=== PATIENT | female | born 1940 | race Caucasian/White ===

== ENCOUNTER → 2016-10-11 | Outpatient (CLI) | payer MEDICARE, BC ==
[~2016-10-11] MED LIST: ASPIRIN E.C. 8181 MG PO; ATENOLOL; DILAUDID 2MG TAB2 MG PO; MULTIPLE VITAMI1 CAP PO; PAXIL PO; PAXIL40 MG PO; TENORMIN 5050 MG/TAB PO; ULTRAM 50MG TAB50 MG PO; VITAMIN E 400 U4001 PO; ZOFRAN8 MG PO
== END ==
LOC: COL.RAD 10:38
PROVIDERS: Family Medicine
DX: R55 Syncope and collapse (principal); R25.8 Other abnormal involuntary movements

== ENCOUNTER 2017-01-16 02:06 | Emergency (ER) | payer MEDICARE, BC ==
[~2017-01-16] VITALS: Ht 152.4 cm; Wt 82.7 kg
[~2017-01-16 02:06] MED LIST changes: -DILAUDID 2MG TAB2 MG PO; -MULTIPLE VITAMI1 CAP PO; -PAXIL40 MG PO; -TENORMIN 5050 MG/TAB PO; -ULTRAM 50MG TAB50 MG PO; -VITAMIN E 400 U4001 PO; -ZOFRAN8 MG PO
[2017-01-16 02:16] VITALS: TEMP 97.6
[2017-01-16] MEDS ORDERED: ULTRAM 50MG TAB50 MG PO (02:28)
[2017-01-16] MEDS ORDERED: ZOFRAN8 MG PO (02:28)
[2017-01-16 02:32] LABS: BASO # 0.1 (0.0-0.2); BASO % 0.6 % (0.0-2.0); EOS # 0.2 (0.0-0.7); EOS % 1.6 % (0-4.0); GRAN # 11.6 (1.4-6.5); GRAN % 86.6 % (42.2-75.2); HEMATOCRIT 44.5 % (37.0-47.0); HEMOGLOBIN 14.8 g/dl (12.5-16.0); LYMPH # 0.7 (1.2-3.4); LYMPH % 5.1 % (20.0-51.0); MEAN CELL VOLUME 95 fl (80.0-100.0); MEAN CORPUSCULAR HEMOGLOBIN 32 pg (27.0-31.0); MEAN CORPUSCULAR HGB CONC 33 g/dl (33.0-37.0); MEAN PLATELET VOLUME 10.1 fl (7.4-10.4); MONO # 0.8 (0.1-0.6); MONO % 5.7 % (1.7-9.3); PLATELET COUNT 147 K/mm3 (130-400); REDCELL DISTRIBUTION WIDTH-CV 14.1 % (11.5-14.5); WHITE BLOOD COUNT 13.4 K/mm3 (4.8-10.8)
[2017-01-16 02:42] LABS: ADJUSTED CALCIUM 8.9 mg/dL (8.4-10.2); ALANINE AMINOTRANSFERASE 51 U/L (9-52); ALBUMIN 4.1 gm/dL (3.5-5.0); ALKALINE PHOSPHATASE 173 U/L (50-136); ANION GAP 13 mmol/L (7-16); BILIRUBIN,TOTAL 1.6 mg/dL (0.0-1.0); BLOOD UREA NITROGEN 17 mg/dL (7-17); CARBON DIOXIDE 29 mmol/L (22-30); CHLORIDE 99 mmol/L (98-107); CREATININE, serum 0.78 mg/dL (0.52-1.25); GLUCOSE 145 mg/dL (74-106); LIPASE 210 U/L (23-300); SODIUM 140 mmol/L (137-145); TOTAL PROTEIN 8.2 gm/dL (6.4-8.2)
[2017-01-16] MEDS ORDERED: PAXIL40 MG PO (02:52)
[2017-01-16] MEDS ORDERED: TENORMIN 5050 MG/TAB PO (02:54)
[2017-01-16] MEDS ORDERED: VITAMIN E 400 U4001 PO (02:56)
[2017-01-16] MEDS ORDERED: MULTIPLE VITAMI1 CAP PO (02:56)
[2017-01-16 03:06] LABS: TROPONIN-I < 0.012 ng/mL (0.000-0.034)
[2017-01-16] MEDS ORDERED: DILAUDID 2MG TAB2 MG PO (04:10)
[2017-01-16 04:20] VITALS: BP 125/64; PULSE 90
== END 2017-01-16 04:15 | disposition home or self-care (01) ==
LOC: COL.ER 02:06
PROVIDERS: Emergency Medicine
DX: E86.9 Volume depletion, unspecified (principal); R10.13 Epigastric pain; R11.2 Nausea with vomiting, unspecified; R19.7 Diarrhea, unspecified; I10 Essential (primary) hypertension; F32.9 Major depressive disorder, single episode, unspecified; G20 Parkinson's disease; R00.0 Tachycardia, unspecified
CPT/HCPCS: C9113; J1170; J2405; J7030

== ENCOUNTER → 2017-06-21 | Outpatient (CLI) | payer MEDICARE, BC ==
[~2017-06-21] MED LIST changes: +DILAUDID 2MG TAB2 MG PO; +MULTIPLE VITAMI1 CAP PO; +PAXIL40 MG PO; +TENORMIN 5050 MG/TAB PO; +ULTRAM 50MG TAB50 MG PO; +VITAMIN E 400 U4001 PO; +ZOFRAN8 MG PO
== END ==
LOC: COL.RAD 08:31
DX: K76.9 Liver disease, unspecified (principal); K44.9 Diaphragmatic hernia without obstruction or gangrene; R19.7 Diarrhea, unspecified
CPT/HCPCS: Q9967

== ENCOUNTER → 2017-06-23 | Outpatient (CLI) | payer MEDICARE, BC | LOC: COL.RAD 08:15 | DX: R18.8 Other ascites (principal); N83.8 Other noninflammatory disorders of ovary, fallopian tube and broad ligament ==

== ENCOUNTER → 2017-06-30 | Outpatient (CLI) | payer MEDICARE, BC ==
[~2017-06-30] VITALS: Ht 152.4 cm; Wt 85.3 kg
[2017-06-30 11:47] VITALS: BP 159/88; PULSE 66
[2017-06-30 12:55] VITALS: BP 158/88; PULSE 60
== END ==
LOC: COL.RAD 11:08
DX: R18.8 Other ascites (principal)

== ENCOUNTER → 2017-07-01 | Outpatient (CLI) | payer MEDICARE, BC | LOC: COL.RAD 08:15 | DX: K74.60 Unspecified cirrhosis of liver (principal); K76.0 Fatty (change of) liver, not elsewhere classified; J90 Pleural effusion, not elsewhere classified | CPT/HCPCS: A9585 ==

== ENCOUNTER → 2017-08-22 | Outpatient (CLI) | payer MEDICARE, BC ==
[2017-08-22 13:49] LABS: HEMATOCRIT 40.2 % (37.0-47.0); HEMOGLOBIN 13.2 g/dl (12.5-16.0); MEAN CELL VOLUME 98 fl (80.0-100.0); MEAN CORPUSCULAR HEMOGLOBIN 32 pg (27.0-31.0); MEAN CORPUSCULAR HGB CONC 33 g/dl (33.0-37.0); MEAN PLATELET VOLUME 10.2 fl (7.4-10.4); PLATELET COUNT 159 K/mm3 (130-400); RED BLOOD COUNT 4.12 M/mm3 (4.10-5.30); WHITE BLOOD COUNT 7.6 K/mm3 (4.8-10.8)
[2017-08-22 14:15] LABS: ERYTHROCYTE SEDIMENTATION RATE 13 mm/hr (0-30)
== END ==
LOC: COL.LAB 13:18
PROVIDERS: Orthopaedic Surgery
DX: Z47.1 Aftercare following joint replacement surgery (principal); M25.561 Pain in right knee; Z96.651 Presence of right artificial knee joint

== ENCOUNTER → 2017-09-27 | Outpatient (CLI) | payer MEDICARE, BC ==
[~2017-09-27] VITALS: Ht 152.4 cm; Wt 76.9 kg
[~2017-09-27] MED LIST changes: +ALDACTONE 25MG25 M1 PO
[2017-09-27 12:27] VITALS: BP 130/86; PULSE 76
[2017-09-27 13:34] VITALS: BP 157/94; PULSE 81
[2017-09-27 14:00] LABS: PERITONEAL -POLYMORPHONUCLEAR 6.6 % (0-25); PERITONEAL FLUID RBC 1000 /mm3 (0-0)
== END ==
LOC: COL.RAD 11:57
PROVIDERS: Family Medicine
DX: K74.60 Unspecified cirrhosis of liver (principal)

== ENCOUNTER → 2017-11-01 | Outpatient (CLI) | payer MEDICARE, BC ==
[~2017-11-01] VITALS: Ht 152.4 cm; Wt 79.6 kg
[~2017-11-01] MED LIST changes: +CBD PO
[2017-11-01 11:07] VITALS: BP 133/83; PULSE 82
[2017-11-01 12:50] VITALS: BP 136/78; PULSE 69
[2017-11-01 13:10] LABS: PERITONEAL -POLYMORPHONUCLEAR 3.7 % (0-25); PERITONEAL FLUID RBC 1000 /mm3 (0-0)
== END ==
LOC: COL.RAD 10:46
PROVIDERS: Family Medicine
DX: R18.8 Other ascites (principal); R11.0 Nausea

== ENCOUNTER 2018-02-26 14:15 | Inpatient (IN) | payer MEDICARE, BC ==
[~2018-02-26] VITALS: Ht 149.9 cm; Wt 92.7 kg
[2018-02-26] VITALS (193 sets, daily range): BP systolic 76–94; BP diastolic 49–58; PULSE 72–73; TEMP 97.9–98.7; O2SAT 69–100
[2018-02-26 15:17] LABS: HEMATOCRIT 38.4 % (37.0-47.0); HEMOGLOBIN 12.9 g/dl (12.5-16.0); MEAN CELL VOLUME 96 fl (80.0-100.0); MEAN CORPUSCULAR HEMOGLOBIN 32 pg (27.0-31.0); MEAN CORPUSCULAR HGB CONC 34 g/dl (33.0-37.0); MEAN PLATELET VOLUME 10.9 fl (7.4-10.4); PLATELET COUNT 97 K/mm3 (130-400); RED BLOOD COUNT 3.99 M/mm3 (4.10-5.30); REDCELL DISTRIBUTION WIDTH-CV 14.6 % (11.5-14.5)
[2018-02-26 15:26] LABS: ALBUMIN 2.7 gm/dL (3.5-5.0); BILIRUBIN,TOTAL 2.3 mg/dL (0.0-1.0); CREATININE, serum 0.93 mg/dL (0.52-1.25); POTASSIUM 3.6 mmol/L (3.4-5.0); TOTAL PROTEIN 6.5 gm/dL (6.4-8.2)
[2018-02-26 15:29] LABS: COLLECTION METHOD CATHETER
[2018-02-26] MEDS ORDERED: PRILOSEC 20MG20 MG PO (15:34)
[2018-02-26 15:35] LABS: BAND 26 % (0-10); LYMPHOCYTE 3 % (20.0-51.0); METAMYELOCYTE 1 % (0-0); NEUTROPHILS 66 % (42.0-75.2)
[2018-02-26] MEDS ORDERED: SINEMET 25/101 UDTAB PO (15:35)
[2018-02-26 15:37] LABS: PLATELET ESTIMATE DECREASED (NORMAL)
[2018-02-26 15:38] LABS: TROPONIN-I 0.018 ng/mL (0.000-0.034)
[2018-02-26 15:42] LABS: MUCOUS Present /lpf; PH 5 (5-8); SQUAMOUS EPITHELIAL None Seen /hpf; URINE APPEARANCE Hazy; URINE BACTERIA Rare /hpf; URINE BILIRUBIN Negative (NEGATIVE); URINE BLOOD 3+ (NEGATIVE); URINE COLOR Amber; URINE GLUCOSE Negative (NEGATIVE); URINE KETONE Trace (NEGATIVE); URINE LEUKOCYTE ESTERASE Negative (NEGATIVE); URINE NITRATE Negative (NEGATIVE); URINE PROTEIN(semi-quant) 1+ (NEGATIVE); URINE RBC 0-2 /hpf; URINE UROBILINOGEN >=4.0 mg/dL (NEGATIVE)
[2018-02-26 18:12] LABS: INR 1.3 (0.8-3.0); PROTHROMBIN TIME 14.7 SECONDS (9.7-12.8)
[2018-02-26 20:11] LABS: ALBUMIN 2.1 gm/dL (3.5-5.0); CALCIUM 6.7 mg/dL (8.4-10.2); CREATININE, serum 0.68 mg/dL (0.52-1.25); PHOSPHOROUS 2.3 mg/dL (2.5-4.5); POTASSIUM 3.4 mmol/L (3.4-5.0)
[2018-02-26] MEDS ORDERED: SINEMET 25/101 UDTAB (22:14)
[2018-02-27] VITALS (630 sets, daily range): BP systolic 89–114; BP diastolic 39–78; PULSE 78–95; TEMP 98.5–102.8; O2SAT 63–100
[2018-02-27 05:54] LABS: HEMOGLOBIN 12.4 g/dl (12.5-16.0); MEAN CELL VOLUME 97 fl (80.0-100.0); MEAN CORPUSCULAR HEMOGLOBIN 33 pg (27.0-31.0); MEAN CORPUSCULAR HGB CONC 34 g/dl (33.0-37.0); MEAN PLATELET VOLUME 10.3 fl (7.4-10.4); PLATELET COUNT 94 K/mm3 (130-400); RED BLOOD COUNT 3.79 M/mm3 (4.10-5.30); REDCELL DISTRIBUTION WIDTH-CV 14.6 % (11.5-14.5)
[2018-02-27 06:03] LABS: HEMATOCRIT 36.7 % (37.0-47.0)
[2018-02-27 06:05] LABS: INR 1.3 (0.8-3.0); PROTHROMBIN TIME 14.2 SECONDS (9.7-12.8)
[2018-02-27 06:07] LABS: ALBUMIN 2.2 gm/dL (3.5-5.0); BILIRUBIN,TOTAL 1.3 mg/dL (0.0-1.0); CALCIUM 7.1 mg/dL (8.4-10.2); CREATININE, serum 0.6 mg/dL (0.52-1.25); MAGNESIUM 1.8 mg/dL (1.6-2.3); PHOSPHOROUS 1.7 mg/dL (2.5-4.5); POTASSIUM 3.8 mmol/L (3.4-5.0); TOTAL PROTEIN 5.5 gm/dL (6.4-8.2)
[2018-02-27 06:26] LABS: BAND 42 % (0-10); LYMPHOCYTE 3 % (20.0-51.0)
[2018-02-27 06:28] LABS: DOHLE BODIES PRESENT; PLATELET ESTIMATE DECREASED (NORMAL)
[2018-02-27 06:31] LABS: NEUTROPHILS 47 % (42.0-75.2)
[2018-02-28] VITALS (167 sets, daily range): BP systolic 96–123; BP diastolic 61–68; PULSE 88–104; TEMP 98.2–99.7; O2SAT 75–97
[2018-02-28 05:34] LABS: HEMOGLOBIN 12.1 g/dl (12.5-16.0); MEAN CELL VOLUME 94 fl (80.0-100.0); MEAN CORPUSCULAR HEMOGLOBIN 33 pg (27.0-31.0); MEAN CORPUSCULAR HGB CONC 35 g/dl (33.0-37.0); MEAN PLATELET VOLUME 10.1 fl (7.4-10.4); PLATELET COUNT 72 K/mm3 (130-400); RED BLOOD COUNT 3.72 M/mm3 (4.10-5.30); REDCELL DISTRIBUTION WIDTH-CV 14.5 % (11.5-14.5)
[2018-02-28 05:35] LABS: INR 1.3 (0.8-3.0); PROTHROMBIN TIME 14.4 SECONDS (9.7-12.8)
[2018-02-28 05:40] LABS: BILIRUBIN,TOTAL 1.3 mg/dL (0.0-1.0); CALCIUM 7.1 mg/dL (8.4-10.2); CREATININE, serum 0.57 mg/dL (0.52-1.25); TOTAL PROTEIN 5.1 gm/dL (6.4-8.2)
[2018-02-28 05:41] LABS: HEMATOCRIT 35.1 % (37.0-47.0)
[2018-02-28 05:56] LABS: BAND 30 % (0-10); LYMPHOCYTE 8 % (20.0-51.0); NEUTROPHILS 54 % (42.0-75.2); PLATELET ESTIMATE DECREASED (NORMAL)
[2018-03-01 04:43] VITALS: BP 101/59; PULSE 96; TEMP 99.6
[2018-03-01 06:44] LABS: MEAN CELL VOLUME 93 fl (80.0-100.0); MEAN CORPUSCULAR HEMOGLOBIN 32 pg (27.0-31.0); MEAN CORPUSCULAR HGB CONC 35 g/dl (33.0-37.0); PLATELET COUNT 97 K/mm3 (130-400); REDCELL DISTRIBUTION WIDTH-CV 14.6 % (11.5-14.5)
[2018-03-01 06:46] LABS: HEMATOCRIT 34.3 % (37.0-47.0)
[2018-03-01 07:06] LABS: CALCIUM 7.1 mg/dL (8.4-10.2); CREATININE, serum 0.65 mg/dL (0.52-1.25); POTASSIUM 3.5 mmol/L (3.4-5.0)
[2018-03-01 07:26] LABS: BAND 7 % (0-10); BASOPHIL 1 % (0-2); LYMPHOCYTE 5 % (20.0-51.0); NEUTROPHILS 82 % (42.0-75.2); PLATELET ESTIMATE DECREASED (NORMAL)
[2018-03-01 08:13] VITALS: BP 125/69; PULSE 95; TEMP 98.2
[2018-03-01 11:38] VITALS: BP 124/70; PULSE 104; TEMP 98.7
[2018-03-01 15:32] VITALS: BP 112/55; PULSE 102; TEMP 99.3
[2018-03-01 20:12] VITALS: BP 125/61; PULSE 96; TEMP 99.3
[2018-03-02] VITALS (7 sets, daily range): BP systolic 111–130; BP diastolic 54–70; PULSE 88–96; TEMP 98.1–99.1
[2018-03-02 06:40] LABS: BASO # 0.1 (0.0-0.2); BASO % 0.7 % (0.0-2.0); EOS # 0.3 (0.0-0.7); EOS % 3.1 % (0-4.0); GRAN # 8.1 (1.4-6.5); GRAN % 79.8 % (42.2-75.2); LYMPH # 0.6 (1.2-3.4); LYMPH % 5.8 % (20.0-51.0); MEAN CELL VOLUME 93 fl (80.0-100.0); MEAN CORPUSCULAR HEMOGLOBIN 32 pg (27.0-31.0); MEAN CORPUSCULAR HGB CONC 35 g/dl (33.0-37.0); MEAN PLATELET VOLUME 10.1 fl (7.4-10.4); MONO # 0.9 (0.1-0.6); MONO % 9.2 % (1.7-9.3); PLATELET COUNT 131 K/mm3 (130-400); RED BLOOD COUNT 3.71 M/mm3 (4.10-5.30); REDCELL DISTRIBUTION WIDTH-CV 14.4 % (11.5-14.5)
[2018-03-02 06:49] LABS: CALCIUM 7.1 mg/dL (8.4-10.2); CREATININE, serum 0.72 mg/dL (0.52-1.25); POTASSIUM 3.1 mmol/L (3.4-5.0)
[2018-03-02 06:51] LABS: HEMATOCRIT 34.4 % (37.0-47.0)
[2018-03-03 04:42] VITALS: BP 114/63; PULSE 90; TEMP 98
[2018-03-03 06:29] LABS: HEMOGLOBIN 11.7 g/dl (12.5-16.0); MEAN CELL VOLUME 91 fl (80.0-100.0); MEAN CORPUSCULAR HEMOGLOBIN 32 pg (27.0-31.0); MEAN CORPUSCULAR HGB CONC 36 g/dl (33.0-37.0); PLATELET COUNT 171 K/mm3 (130-400); RED BLOOD COUNT 3.62 M/mm3 (4.10-5.30); REDCELL DISTRIBUTION WIDTH-CV 14.4 % (11.5-14.5)
[2018-03-03 06:38] LABS: HEMATOCRIT 32.8 % (37.0-47.0)
[2018-03-03 06:41] LABS: CALCIUM 7.1 mg/dL (8.4-10.2); CREATININE, serum 0.71 mg/dL (0.52-1.25); MAGNESIUM 2.1 mg/dL (1.6-2.3)
[2018-03-03 07:34] LABS: BAND 27 % (0-10); EOSINOPHIL 1 % (0-4); LYMPHOCYTE 4 % (20.0-51.0); NEUTROPHILS 63 % (42.0-75.2); PLATELET ESTIMATE NORMAL (NORMAL)
[2018-03-03 08:11] VITALS: BP 122/74; PULSE 93; TEMP 97.9
[2018-03-03] MEDS ORDERED: CLEOCIN HCL300 MG PO (10:23)
[2018-03-03] MEDS ORDERED: MAG-OX 400400 MG/TAB PO (10:23)
[2018-03-03] MEDS ORDERED: K-DUR20 MEQ PO (10:24)
[2018-03-03] MEDS ORDERED: LASIX 20MG TABL20 MG PO (10:24)
[2018-03-03] MEDS ORDERED: ROXICODONE 55 MG/TAB PO (10:26)
[2018-03-03 11:08] VITALS: BP 131/71; PULSE 101; TEMP 98.2
[2018-03-03 11:50] LABS: INR 1.2 (0.8-3.0); PROTHROMBIN TIME 13.8 SECONDS (9.7-12.8)
[2018-03-03 11:52] LABS: PARTIAL THROMBOPLASTIN TIME 30.2 SECONDS (26.0-37.0)
[2018-03-03 13:45] LABS: COLLECTION METHOD CATHETER
[2018-03-03 13:50] LABS: PH 6 (5-8); SQUAMOUS EPITHELIAL 0-2 /hpf; URINE APPEARANCE Clear; URINE BACTERIA None Seen /hpf; URINE BILIRUBIN Negative (NEGATIVE); URINE BLOOD 1+ (NEGATIVE); URINE COLOR Straw; URINE GLUCOSE Negative (NEGATIVE); URINE KETONE Negative (NEGATIVE); URINE LEUKOCYTE ESTERASE Negative (NEGATIVE); URINE NITRATE Negative (NEGATIVE); URINE PROTEIN(semi-quant) Negative (NEGATIVE); URINE RBC 0-2 /hpf; URINE UROBILINOGEN Negative (NEGATIVE)
[2018-03-03 16:11] LABS: PLEURAL FLUID APPEARANCE HAZY; PLEURAL FLUID COLOR YELLOW; PLEURAL FLUID RBC 1000 /mm3 (0-0); PLEURAL FLUID WBC 600 /mm3
[2018-03-03 16:21] LABS: GLUCOSE,PLEURAL FLUID 114 mg/dL
[2018-03-03 16:24] LABS: TOTAL PROTEIN,PLEURAL FLUID < 2.0 gm/dL
[2018-03-03 16:45] VITALS: BP 131/71; PULSE 101; TEMP 98.2
== END 2018-03-03 16:45 | DRG 871 ==
LOC: COL.ER 14:15 → EDBEDREQ 16:45 → ICU 16:45 → MEDICAL 02-28 12:00
PROVIDERS: Emergency Medicine; Family Medicine; Internal Medicine; Physician Assistant
PROC: 0W993ZX Drainage of Right Pleural Cavity, Percutaneous Approach, Diagnostic (ICD-10-PCS; principal; 2018-03-03)
DX: A41.9 Sepsis, unspecified organism (principal); J18.9 Pneumonia, unspecified organism; J69.0 Pneumonitis due to inhalation of food and vomit; E87.1 Hypo-osmolality and hyponatremia; J90 Pleural effusion, not elsewhere classified; E87.2 Acidosis; Z66 Do not resuscitate; E87.6 Hypokalemia; G20 Parkinson's disease; I10 Essential (primary) hypertension; M79.7 Fibromyalgia; T79.6XXA Traumatic ischemia of muscle, initial encounter; W18.30XA Fall on same level, unspecified, initial encounter; K74.60 Unspecified cirrhosis of liver
CPT/HCPCS: 99223-AI; 99232-AI; 99233-AI; 99239; A4314; C1751; G0378; G8978-GP; G8979-GP; J0456; J0696; J1650; J1940; J2185; J2405; J3370; J3475; J7030; J7050; J7060; J7120

== ENCOUNTER → 2018-03-08 | Outpatient (REF) ==
[~2018-03-08] MED LIST changes: +CLEOCIN HCL300 MG PO; +K-DUR20 MEQ PO; +K-TAB20 PO; +LASIX 20MG TABL20 MG PO; +MAG-OX 400400 MG/TAB PO; +PRILOSEC 20MG20 MG PO; +ROXICODONE 55 MG/TAB PO; +SINEMET 25/101 UDTAB; +SINEMET 25/101 UDTAB PO
[2018-03-08 09:34] LABS: BASO # 0.1 (0.0-0.2); BASO % 0.8 % (0.0-2.0); EOS # 0.3 (0.0-0.7); EOS % 2.2 % (0-4.0); GRAN % 74.4 % (42.2-75.2); HEMATOCRIT 39.9 % (37.0-47.0); HEMOGLOBIN 13.5 g/dl (12.5-16.0); LYMPH # 2.1 (1.2-3.4); LYMPH % 14.2 % (20.0-51.0); MEAN CELL VOLUME 95 fl (80.0-100.0); MEAN CORPUSCULAR HEMOGLOBIN 32 pg (27.0-31.0); MEAN CORPUSCULAR HGB CONC 34 g/dl (33.0-37.0); MEAN PLATELET VOLUME 9.4 fl (7.4-10.4); PLATELET COUNT 236 K/mm3 (130-400); RED BLOOD COUNT 4.22 M/mm3 (4.10-5.30); REDCELL DISTRIBUTION WIDTH-CV 15.3 % (11.5-14.5)
[2018-03-08 09:41] LABS: ALBUMIN 2.6 gm/dL (3.5-5.0); BILIRUBIN,TOTAL 1.6 mg/dL (0.0-1.0); CALCIUM 7.9 mg/dL (8.4-10.2); CREATININE, serum 0.79 mg/dL (0.52-1.25); POTASSIUM 4.5 mmol/L (3.4-5.0); TOTAL PROTEIN 6.7 gm/dL (6.4-8.2)
== END ==
LOC: ZLAB.STJ 09:22
PROVIDERS: Nurse Practitioner
DX: R94.5 Abnormal results of liver function studies (principal); R68.89 Other general symptoms and signs; R79.1 Abnormal coagulation profile

== ENCOUNTER → 2018-03-09 | Outpatient (CLI) | payer MEDICARE, BC ==
[~2018-03-09] VITALS: Ht 149.9 cm; Wt 87.6 kg
[2018-03-09 11:53] VITALS: BP 106/71; PULSE 67
[2018-03-09 13:10] VITALS: BP 106/67; PULSE 62
== END ==
LOC: COL.RAD 11:21
DX: R18.8 Other ascites (principal); K74.60 Unspecified cirrhosis of liver

== ENCOUNTER → 2018-03-13 | Outpatient (REF) ==
[2018-03-13 19:05] LABS: CALCIUM 8.1 mg/dL (8.4-10.2); CREATININE, serum 0.89 mg/dL (0.52-1.25); MAGNESIUM 1.8 mg/dL (1.6-2.3); POTASSIUM 4.3 mmol/L (3.4-5.0)
== END ==
LOC: ZCOL.LAB 18:48
PROVIDERS: Internal Medicine
DX: R79.89 Other specified abnormal findings of blood chemistry (principal); E61.2 Magnesium deficiency

== ENCOUNTER → 2018-03-15 | Outpatient (REF) | LOC: ZLAB.STJ 13:49 | DX: R19.5 Other fecal abnormalities (principal) ==

== ENCOUNTER 2018-04-10 10:18 | Emergency (ER) | payer MEDICARE, BC ==
[~2018-04-10] VITALS: Ht 152.4 cm; Wt 73.2 kg
[2018-04-10 10:57] LABS: BASO # 0.1 (0.0-0.2); BASO % 1.5 % (0.0-2.0); EOS # 0.5 (0.0-0.7); EOS % 7.2 % (0-4.0); GRAN # 4.7 (1.4-6.5); GRAN % 63.6 % (42.2-75.2); HEMATOCRIT 46.2 % (37.0-47.0); HEMOGLOBIN 15.2 g/dl (12.5-16.0); LYMPH # 1.4 (1.2-3.4); LYMPH % 18.6 % (20.0-51.0); MEAN CELL VOLUME 97 fl (80.0-100.0); MEAN CORPUSCULAR HEMOGLOBIN 32 pg (27.0-31.0); MEAN CORPUSCULAR HGB CONC 33 g/dl (33.0-37.0); MEAN PLATELET VOLUME 10.9 fl (7.4-10.4); MONO # 0.6 (0.1-0.6); MONO % 8.6 % (1.7-9.3); PLATELET COUNT 183 K/mm3 (130-400); RED BLOOD COUNT 4.77 M/mm3 (4.10-5.30); REDCELL DISTRIBUTION WIDTH-CV 14.6 % (11.5-14.5)
[2018-04-10 11:00] LABS: PROTHROMBIN TIME 11.7 SECONDS (9.7-12.8)
[2018-04-10] MEDS ORDERED: SINEMET CR 50 M1 TER PO (11:00)
[2018-04-10 11:09] LABS: ALBUMIN 3.7 gm/dL (3.5-5.0); BILIRUBIN,TOTAL 1.4 mg/dL (0.0-1.0); C-REACTIVE PROTEIN 0.9 mg/dL (0.0-0.9); CALCIUM 9.4 mg/dL (8.4-10.2); CREATININE, serum 1.11 mg/dL (0.52-1.25); POTASSIUM 4.9 mmol/L (3.4-5.0); TOTAL PROTEIN 8.4 gm/dL (6.4-8.2)
[2018-04-10 11:23] LABS: PROLACTIN 44.4 ng/mL (3.0-18.6)
[2018-04-10 12:44] VITALS: BP 96/69; PULSE 55; TEMP 97.5
== END 2018-04-10 12:45 | disposition home or self-care (01) ==
LOC: COL.ER 10:18
PROVIDERS: Family Medicine
DX: R56.9 Unspecified convulsions (principal); I10 Essential (primary) hypertension; G20 Parkinson's disease

== ENCOUNTER 2018-09-15 16:11 | Emergency (ER) | payer MEDICARE, BC ==
[~2018-09-15] VITALS: Ht 152.4 cm; Wt 72.7 kg
[~2018-09-15 16:11] MED LIST changes: +SINEMET CR 50 M1 TER PO
[2018-09-15 16:36] VITALS: TEMP 97
[2018-09-15] MEDS ORDERED: SINEMET 25/101 UDTAB PO (17:26)
[2018-09-15] MEDS ORDERED: DEPAKOTE 250MG250 MG PO (17:28)
[2018-09-15] MEDS ORDERED: XALATAN EYE DROPS OS (17:28)
[2018-09-15 18:30] LABS: BASO # 0.1 (0.0-0.2); BASO % 1.2 % (0.0-2.0); EOS # 0.3 (0.0-0.7); EOS % 3.7 % (0-4.0); GRAN # 5.2 (1.4-6.5); GRAN % 59.9 % (42.2-75.2); HEMATOCRIT 45.3 % (37.0-47.0); HEMOGLOBIN 15.1 g/dl (12.5-16.0); LYMPH # 1.7 (1.2-3.4); LYMPH % 19.5 % (20.0-51.0); MEAN CELL VOLUME 97 fl (80.0-100.0); MEAN CORPUSCULAR HEMOGLOBIN 33 pg (27.0-31.0); MEAN CORPUSCULAR HGB CONC 33 g/dl (33.0-37.0); MEAN PLATELET VOLUME 11.1 fl (7.4-10.4); MONO # 1.3 (0.1-0.6); MONO % 15.5 % (1.7-9.3); PLATELET COUNT 133 K/mm3 (130-400); RED BLOOD COUNT 4.65 M/mm3 (4.10-5.30); REDCELL DISTRIBUTION WIDTH-CV 14.2 % (11.5-14.5)
[2018-09-15 18:41] LABS: ALBUMIN 3.5 gm/dL (3.5-5.0); BILIRUBIN,TOTAL 1.6 mg/dL (0.0-1.0); C-REACTIVE PROTEIN 0.8 mg/dL (0.0-0.9); CALCIUM 9.1 mg/dL (8.4-10.2); CREATININE, serum 1.2 mg/dL (0.52-1.25); TOTAL PROTEIN 7.8 gm/dL (6.4-8.2)
[2018-09-15 19:13] LABS: VALPROIC ACID (DEPAKENE) 47.4 ug/mL (50.0-100.0)
[2018-09-15 20:42] LABS: COLLECTION METHOD CLEAN CATCH
[2018-09-15 21:02] LABS: BUDDING YEAST Present /hpf; MUCOUS Present /lpf; PH 6 (5-8); SQUAMOUS EPITHELIAL 0-2 /hpf; URINE APPEARANCE Clear; URINE BACTERIA Rare /hpf; URINE BILIRUBIN Negative (NEGATIVE); URINE BLOOD 1+ (NEGATIVE); URINE COLOR Yellow; URINE GLUCOSE Negative (NEGATIVE); URINE KETONE Negative (NEGATIVE); URINE LEUKOCYTE ESTERASE 1+ (NEGATIVE); URINE NITRATE Negative (NEGATIVE); URINE PROTEIN(semi-quant) Negative (NEGATIVE); URINE UROBILINOGEN Negative (NEGATIVE)
[2018-09-15] MEDS ORDERED: OMNICEF 300MG300 MG PO (21:13)
[2018-09-15 21:49] VITALS: BP 100/66; PULSE 57
== END 2018-09-15 21:49 | disposition home or self-care (01) ==
LOC: COL.ER 16:11
PROVIDERS: Emergency Medicine
DX: N39.0 Urinary tract infection, site not specified (principal); E86.0 Dehydration; I10 Essential (primary) hypertension; G20 Parkinson's disease
CPT/HCPCS: A4216; J0696; J7030

== ENCOUNTER 2018-09-16 21:03 | Observation (INO) | payer MEDICARE, BC ==
[~2018-09-16] VITALS: Ht 152.4 cm; Wt 76.8 kg
[~2018-09-16 21:03] MED LIST changes: +DEPAKOTE 250MG250 MG PO; +OMNICEF 300MG300 MG PO; +XALATAN EYE DROPS OS
[2018-09-16 22:07] LABS: BASO # 0.1 (0.0-0.2); BASO % 1.2 % (0.0-2.0); EOS # 0.3 (0.0-0.7); EOS % 5.1 % (0-4.0); GRAN # 3.4 (1.4-6.5); GRAN % 55.7 % (42.2-75.2); HEMATOCRIT 39.8 % (37.0-47.0); HEMOGLOBIN 13.4 g/dl (12.5-16.0); LYMPH # 1.1 (1.2-3.4); LYMPH % 18.1 % (20.0-51.0); MEAN CELL VOLUME 98 fl (80.0-100.0); MEAN CORPUSCULAR HEMOGLOBIN 33 pg (27.0-31.0); MEAN CORPUSCULAR HGB CONC 34 g/dl (33.0-37.0); MEAN PLATELET VOLUME 10.8 fl (7.4-10.4); MONO # 1.2 (0.1-0.6); MONO % 19.7 % (1.7-9.3); PLATELET COUNT 95 K/mm3 (130-400); RED BLOOD COUNT 4.07 M/mm3 (4.10-5.30)
[2018-09-16 22:23] LABS: ALANINE AMINOTRANSFERASE 10 U/L (9-52); ALBUMIN 3.2 gm/dL (3.5-5.0); ALKALINE PHOSPHATASE 120 U/L (50-136); ANION GAP 4 mmol/L (7-16); AST,SGOT 48 U/L (15-37); BLOOD UREA NITROGEN 15 mg/dL (7-17); C-REACTIVE PROTEIN 0.9 mg/dL (0.0-0.9); CALCIUM 8.5 mg/dL (8.4-10.2); CARBON DIOXIDE 31 mmol/L (22-30); CHLORIDE 97 mmol/L (98-107); CREATININE, serum 0.81 mg/dL (0.52-1.25); GLUCOSE 93 mg/dL (74-106); POTASSIUM 4.4 mmol/L (3.4-5.0); SODIUM 132 mmol/L (137-145)
[2018-09-16 22:30] VITALS: BP 134/76; PULSE 60
[2018-09-16 22:33] LABS: TROPONIN-I < 0.012 ng/mL (0.000-0.034)
[2018-09-17] VITALS (10 sets, daily range): BP systolic 89–135; BP diastolic 53–72; PULSE 57–94; TEMP 97–98.8
--- NOTE | 2018-09-17 01:30 | NUR ---
Admitted to medical floor from ER- VSS, Up to bathroom with one assist, voiding well-seems to be off balance with gait, pleasant- son staying with pt tonight- IV fluids of NS at 125cc/hr
--- NOTE | 2018-09-17 06:00 | NUR ---
Rested well tonight- no requests. Understands to call for assistance up to bathroom-
[2018-09-17 07:20] LABS: MAGNESIUM 1.6 mg/dL (1.6-2.3); PHOSPHOROUS 3.3 mg/dL (2.5-4.5)
[2018-09-17 07:22] LABS: BASO # 0.1 (0.0-0.2); BASO % 0.9 % (0.0-2.0); EOS # 0.4 (0.0-0.7); EOS % 6.6 % (0-4.0); GRAN # 2.7 (1.4-6.5); GRAN % 47.6 % (42.2-75.2); HEMOGLOBIN 12.7 g/dl (12.5-16.0); LYMPH # 1.5 (1.2-3.4); LYMPH % 27.1 % (20.0-51.0); MEAN CELL VOLUME 97 fl (80.0-100.0); MEAN CORPUSCULAR HEMOGLOBIN 33 pg (27.0-31.0); MEAN CORPUSCULAR HGB CONC 33 g/dl (33.0-37.0); MEAN PLATELET VOLUME 11.2 fl (7.4-10.4); MONO % 17.6 % (1.7-9.3); PLATELET COUNT 81 K/mm3 (130-400); REDCELL DISTRIBUTION WIDTH-CV 13.9 % (11.5-14.5)
[2018-09-17 07:29] LABS: ALBUMIN 2.6 gm/dL (3.5-5.0); BILIRUBIN,TOTAL 0.6 mg/dL (0.0-1.0); CALCIUM 8.1 mg/dL (8.4-10.2); CREATININE, serum 0.68 mg/dL (0.52-1.25)
--- NOTE | 2018-09-17 08:15 | NUR ---
Initial assessment completed. No pain reported. The son is at the bedside. Plan to have neurology see the patient.
--- NOTE | 2018-09-17 14:30 | NUR ---
Dr. Ordonez here at this time to see the patient. New orders to lower sinemet dose and check a variety of labs. The patient had a drop in blood pressure from sitting to standing.
--- NOTE | 2018-09-17 15:17 | NUR ---
No change throughout the afternoon. The call light is in place and the patient will call for assistance as needed.
[2018-09-17 16:03] LABS: THYROXINE (T4)-TOTAL 7.2 ug/dL (5.5-11.0)
[2018-09-17 16:17] LABS: THYROID STIMULATING HORMONE 3.3 uIU/mL (0.465-4.680)
--- NOTE | 2018-09-17 20:05 | NUR ---
Shift assessment complete. Pt resting in bed, awake, a&o, cooperative c cares. Pt denies pain or any other c/o at this time. IV patent. Pt denies needs. Call light in reach, will monitor.
[2018-09-18 04:36] VITALS: BP 115/66; PULSE 74; TEMP 97.1
[2018-09-18 07:10] VITALS: BP 113/55; PULSE 75; TEMP 98.1
--- NOTE | 2018-09-18 10:00 | NUR ---
Pt alert and oriented. Pt am assessment completed. Pt denies pain. Pt has son at bedside. Pt neuro checks completed. Pt IV patent and fluids running. Pt has call light in reach and denies SOB, dizziness, or pain.
[2018-09-18 12:45] VITALS: BP 114/61; PULSE 75; TEMP 98.5
--- NOTE | 2018-09-18 13:41 | NUR ---
[facility] met with the patient and patient's son, Jan, to discuss discharge plan. The patient lives alone in [place] and works at [employer]. Her son, Jan, lives in [facility]. She reports independence with ADLs and has a cane, walker, and wheelchair. The patient's PCP is Dr. Tomás Gilliam and she receives her medications at the [facility]. She reports no difficulties obtaining her meds. The patient does not have advanced directives in EMR, but she states that she does have them completed. An [facility] consult was ordered for the patient. Flory, with [facility], reports that the patient is too functional and that they cannot accept. [facility] informed the patient and patient's son and discussed options. The patient reports that she already receives outpatient therapy for ST at the [facility] on [facility] [address] [facility] and would prefer to continue outpatient services. She states that she feels safe to return back home and the patient's son is agreeable to the plan. [facility] has contacted the [facility] on [facility]. The receptionist nurse reports that she will contact [facility] back with an appointment time.
[2018-09-18] MEDS ORDERED: CEFTIN500 MG PO (13:46)
[2018-09-18] MEDS ORDERED: THIAMINE 1100 MG/TAB PO (13:52)
[2018-09-18] MEDS ORDERED: SINEMET 25/101 UDTAB PO (13:52)
[2018-09-18 14:18] LABS: FOLATE (FOLIC ACID) 5.5 ng/mL (7.0-31.4)
--- NOTE | 2018-09-18 14:27 | NUR ---
First visit from the eyeglass assembler. prayed with patient. No other needs right now.
--- NOTE | 2018-09-18 15:13 | NUR ---
[facility] on [facility] contacted [facility] to set up the patient's OT/PT appointments. The OT appointment was made for Tuesday, 09/22, at 1115. The PT appointment for Tuesday, 09/27, at 1100. VITALY informed the community program assistant. VITALY then informed the patient and patient's son. They were both in agreeance to the appointments. The patient is to discharge back home today, 09/18. No additional needs at this time.
[2018-09-18] MEDS ORDERED: THERAGRAN TAB1 UDTAB PO (15:15)
[2018-09-18] MEDS ORDERED: FOLIC ACID 11 MG/TA1 PO (15:15)
--- NOTE | 2018-09-18 16:00 | NUR ---
Pt given discharge instructions and verbalizes education. Pt son at bedside. Pt IV dc'd and tip intact no redness. Pt has all belongings. Pt escorted out by aide to car without incident.
== END 2018-09-18 16:15 | disposition home or self-care (01) ==
LOC: COL.ER 21:03 → MEDICAL 23:04
PROVIDERS: Emergency Medicine; Nurse Practitioner Family; Psychiatry & Neurology Neurology; ADMIT Internal Medicine
DX: R53.1 Weakness (principal); R29.6 Repeated falls; I10 Essential (primary) hypertension; G20 Parkinson's disease; K74.60 Unspecified cirrhosis of liver; R41.82 Altered mental status, unspecified; R56.9 Unspecified convulsions; I27.20 Pulmonary hypertension, unspecified; F32.9 Major depressive disorder, single episode, unspecified; E43 Unspecified severe protein-calorie malnutrition; M79.7 Fibromyalgia; K21.9 Gastro-esophageal reflux disease without esophagitis; Z96.651 Presence of right artificial knee joint; Z90.49 Acquired absence of other specified parts of digestive tract; Z88.0 Allergy status to penicillin; Z88.2 Allergy status to sulfonamides
CPT/HCPCS: 99239; A4216; G0378; G8978-GP; G8979-GP; G8987-GO; G8988-GO; J0696; J7030

== ENCOUNTER → 2018-10-11 | Outpatient (CLI) | payer MEDICARE, BC ==
[~2018-10-11] VITALS: Ht 152.4 cm; Wt 76.6 kg
[~2018-10-11] MED LIST changes: +CEFTIN500 MG PO; +ENULOSE10 GM/151 PO; +FOLIC ACID 11 MG/TA1 PO; +NATURE'S BLEND100 M2 PO; +THERAGRAN TAB1 UDTAB PO; +THIAMINE 1100 MG/TAB PO; +XELPROS2.5 ML OP; +ZOFRAN 4MG T4 MG/TAB PO
[2018-10-11 14:41] VITALS: BP 145/89; PULSE 113
[2018-10-11 15:35] VITALS: BP 123/79; PULSE 110
--- NOTE | 2018-10-11 16:05 | NUR ---
Pt out to car per wheechair. Denies pain at this time. Pt assisted into car. Copy of discharge instructions gone over with pt. Verbalized understanding of instructions.
[2018-10-11 16:40] LABS: PERITONEAL -POLYMORPHONUCLEAR 7.7 % (0-25); PERITONEAL FLUID RBC 1000 /mm3 (0-0)
== END ==
LOC: COL.RAD 14:15
PROVIDERS: Family Medicine
DX: R18.8 Other ascites (principal)

== ENCOUNTER 2018-10-18 08:45 | Outpatient (RCR) | payer MEDICARE, BC ==
[2018-10-20] MEDS ORDERED: TENORMIN 5050 MG/TAB PO (12:59)
== END 2018-10-22 | disposition still patient (30) ==
LOC: MKS.ESL.PT
DX: R41.3 Other amnesia (principal)
CPT/HCPCS: G8987-GO; G8988-GO; G8989-GO; G9168-GN; G9169-GN

== ENCOUNTER 2018-10-20 10:35 | Emergency (ER) | payer MEDICARE, BC ==
[~2018-10-20] VITALS: Ht 152.4 cm; Wt 72.7 kg
[2018-10-20 10:38] VITALS: TEMP 98.7
[2018-10-20 11:16] LABS: BASO % 0.7 % (0.0-2.0); EOS # 0.1 (0.0-0.7); EOS % 1.2 % (0-4.0); GRAN # 4.1 (1.4-6.5); GRAN % 68.1 % (42.2-75.2); HEMATOCRIT 40.9 % (37.0-47.0); HEMOGLOBIN 13.5 g/dl (12.5-16.0); LYMPH # 0.8 (1.2-3.4); LYMPH % 13.9 % (20.0-51.0); MEAN CELL VOLUME 99 fl (80.0-100.0); MEAN CORPUSCULAR HEMOGLOBIN 33 pg (27.0-31.0); MEAN CORPUSCULAR HGB CONC 33 g/dl (33.0-37.0); MEAN PLATELET VOLUME 9.6 fl (7.4-10.4); MONO # 0.9 (0.1-0.6); MONO % 15.6 % (1.7-9.3); PLATELET COUNT 160 K/mm3 (130-400); RED BLOOD COUNT 4.14 M/mm3 (4.10-5.30); REDCELL DISTRIBUTION WIDTH-CV 14.1 % (11.5-14.5)
[2018-10-20 11:22] LABS: ALANINE AMINOTRANSFERASE 28 U/L (9-52); ALKALINE PHOSPHATASE 120 U/L (50-136); ANION GAP 8 mmol/L (7-16); AST,SGOT 52 U/L (15-37); BILIRUBIN,TOTAL 1.4 mg/dL (0.0-1.0); BLOOD UREA NITROGEN 10 mg/dL (7-17); CALCIUM 8.4 mg/dL (8.4-10.2); CARBON DIOXIDE 29 mmol/L (22-30); CHLORIDE 96 mmol/L (98-107); CREATININE, serum 0.83 mg/dL (0.52-1.25); GLUCOSE 73 mg/dL (74-106); POTASSIUM 4.3 mmol/L (3.4-5.0); SODIUM 134 mmol/L (137-145)
[2018-10-20 11:31] LABS: INR 1.2 (0.8-3.0); PROTHROMBIN TIME 13.6 SECONDS (9.7-12.8)
[2018-10-20 11:35] LABS: TROPONIN-I < 0.012 ng/mL (0.000-0.035)
[2018-10-20 12:57] LABS: COLLECTION METHOD CLEAN CATCH
[2018-10-20] MEDS ORDERED: TENORMIN 5050 MG/TAB PO (12:59)
[2018-10-20 13:04] LABS: MUCOUS Present /lpf; PH 7 (5-8); SQUAMOUS EPITHELIAL 0-2 /hpf; URINE APPEARANCE Clear; URINE BACTERIA Rare /hpf; URINE BILIRUBIN Negative (NEGATIVE); URINE BLOOD Negative (NEGATIVE); URINE COLOR Yellow; URINE GLUCOSE Negative (NEGATIVE); URINE KETONE Negative (NEGATIVE); URINE LEUKOCYTE ESTERASE Negative (NEGATIVE); URINE NITRATE Negative (NEGATIVE); URINE PROTEIN(semi-quant) Negative (NEGATIVE); URINE RBC 0-2 /hpf; URINE UROBILINOGEN >=4.0 mg/dL (NEGATIVE)
[2018-10-20 13:50] VITALS: BP 124/64; PULSE 102
== END 2018-10-20 14:00 | disposition home or self-care (01) ==
LOC: COL.ER 10:35
PROVIDERS: Emergency Medicine
DX: R00.0 Tachycardia, unspecified (principal); F32.9 Major depressive disorder, single episode, unspecified
CPT/HCPCS: Q9967

== ENCOUNTER 2018-10-25 11:30 | Emergency (ER) | payer MEDICARE, BC ==
[~2018-10-25] VITALS: Ht 152.4 cm; Wt 72.7 kg
[2018-10-25 11:35] VITALS: TEMP 98
[2018-10-25 13:27] LABS: BASO # 0.1 (0.0-0.2); BASO % 0.7 % (0.0-2.0); EOS # 0.1 (0.0-0.7); EOS % 1.3 % (0-4.0); GRAN # 5.6 (1.4-6.5); HEMATOCRIT 41.8 % (37.0-47.0); HEMOGLOBIN 14.2 g/dl (12.5-16.0); LYMPH # 0.9 (1.2-3.4); LYMPH % 11.2 % (20.0-51.0); MEAN CELL VOLUME 97 fl (80.0-100.0); MEAN CORPUSCULAR HEMOGLOBIN 33 pg (27.0-31.0); MEAN CORPUSCULAR HGB CONC 34 g/dl (33.0-37.0); MEAN PLATELET VOLUME 9.9 fl (7.4-10.4); MONO # 0.9 (0.1-0.6); MONO % 12.1 % (1.7-9.3); PLATELET COUNT 125 K/mm3 (130-400); RED BLOOD COUNT 4.31 M/mm3 (4.10-5.30); REDCELL DISTRIBUTION WIDTH-CV 13.9 % (11.5-14.5)
[2018-10-25 13:34] LABS: ALANINE AMINOTRANSFERASE 9 U/L (9-52); ALBUMIN 2.9 gm/dL (3.5-5.0); ALKALINE PHOSPHATASE 110 U/L (50-136); ANION GAP 7 mmol/L (7-16); AST,SGOT 49 U/L (15-37); BILIRUBIN,TOTAL 1.4 mg/dL (0.0-1.0); BLOOD UREA NITROGEN 11 mg/dL (7-17); CALCIUM 8.5 mg/dL (8.4-10.2); CARBON DIOXIDE 30 mmol/L (22-30); CHLORIDE 97 mmol/L (98-107); CREATININE, serum 0.78 mg/dL (0.52-1.25); GLUCOSE 76 mg/dL (74-106); LIPASE 67 U/L (23-300); POTASSIUM 4.5 mmol/L (3.4-5.0); SODIUM 134 mmol/L (137-145)
[2018-10-25 13:48] LABS: TROPONIN-I < 0.012 ng/mL (0.000-0.035)
[2018-10-25 14:30] LABS: INR 1.2 (0.8-3.0); PROTHROMBIN TIME 13.9 SECONDS (9.7-12.8)
[2018-10-25 14:32] LABS: PARTIAL THROMBOPLASTIN TIME 22.3 SECONDS (26.0-37.0)
[2018-10-25 14:46] LABS: COLLECTION METHOD CLEAN CATCH
[2018-10-25 14:59] LABS: HYALINE CAST >12 /lpf; MUCOUS Present /lpf; PH 6 (5-8); SQUAMOUS EPITHELIAL 0-2 /hpf; URINE APPEARANCE Clear; URINE BACTERIA None Seen /hpf; URINE BILIRUBIN Negative (NEGATIVE); URINE BLOOD Negative (NEGATIVE); URINE COLOR Yellow; URINE GLUCOSE Negative (NEGATIVE); URINE KETONE Trace (NEGATIVE); URINE LEUKOCYTE ESTERASE Negative (NEGATIVE); URINE NITRATE Negative (NEGATIVE); URINE PROTEIN(semi-quant) Negative (NEGATIVE); URINE RBC 0-2 /hpf; URINE UROBILINOGEN >=4.0 mg/dL (NEGATIVE)
[2018-10-25 17:16] VITALS: BP 95/47; PULSE 71
== END 2018-10-25 17:32 | disposition home or self-care (01) ==
LOC: COL.ER 11:30
PROVIDERS: Emergency Medicine
DX: I10 Essential (primary) hypertension (principal); G20 Parkinson's disease; I95.1 Orthostatic hypotension
CPT/HCPCS: J7030

== ENCOUNTER 2018-12-11 10:45 | Outpatient (RCR) | payer MEDICARE, BC ==
[~2018-12-11 10:45] MED LIST changes: +PAXIL 10MG10 MG PO
[2018-12-13] MEDS ORDERED: DOXYCYCLINE HY100 MG PO (00:24)
[2018-12-21] MEDS ORDERED: REMERON 15M15 MG/TA1 PO (22:46)
[2018-12-21] MEDS ORDERED: KEPPRA250 MG PO (22:50)
[2018-12-21] MEDS ORDERED: ARICEPT 5MG PO (22:56)
[2018-12-21] MEDS ORDERED: MYCOGEN TP (23:06)
== END 2018-12-28 11:36 | disposition home or self-care (01) ==
LOC: MKS.ESL.PT 10:45
DX: G20 Parkinson's disease (principal); G31.84 Mild cognitive impairment of uncertain or unknown etiology

== ENCOUNTER 2018-12-12 20:05 | Emergency (ER) | payer MEDICARE, BC ==
[~2018-12-12] VITALS: Ht 152.4 cm; Wt 68.2 kg
[~2018-12-12 20:05] MED LIST changes: -PAXIL 10MG10 MG PO
[2018-12-12 20:14] VITALS: TEMP 98.6
[2018-12-12 20:50] LABS: BASO % 0.4 % (0.0-2.0); EOS # 0.1 (0.0-0.7); EOS % 1.4 % (0-4.0); GRAN % 70.3 % (42.2-75.2); HEMATOCRIT 41.7 % (37.0-47.0); HEMOGLOBIN 13.9 g/dl (12.5-16.0); LYMPH # 0.8 (1.2-3.4); LYMPH % 11.3 % (20.0-51.0); MEAN CELL VOLUME 99 fl (80.0-100.0); MEAN CORPUSCULAR HEMOGLOBIN 33 pg (27.0-31.0); MEAN CORPUSCULAR HGB CONC 33 g/dl (33.0-37.0); MEAN PLATELET VOLUME 9.6 fl (7.4-10.4); MONO # 1.1 (0.1-0.6); PLATELET COUNT 158 K/mm3 (130-400); RED BLOOD COUNT 4.23 M/mm3 (4.10-5.30); REDCELL DISTRIBUTION WIDTH-CV 15.6 % (11.5-14.5)
[2018-12-12 21:04] LABS: ALANINE AMINOTRANSFERASE 11 U/L (9-52); ALBUMIN 2.7 gm/dL (3.5-5.0); ALKALINE PHOSPHATASE 132 U/L (50-136); ANION GAP 6 mmol/L (7-16); AST,SGOT 47 U/L (15-37); BILIRUBIN,TOTAL 1.1 mg/dL (0.0-1.0); BLOOD UREA NITROGEN 17 mg/dL (7-17); C-REACTIVE PROTEIN 4.9 mg/dL (0.0-0.9); CALCIUM 8.2 mg/dL (8.4-10.2); CARBON DIOXIDE 31 mmol/L (22-30); CHLORIDE 93 mmol/L (98-107); GLUCOSE 95 mg/dL (74-106); POTASSIUM 4.4 mmol/L (3.4-5.0); SODIUM 130 mmol/L (137-145); TOTAL PROTEIN 7.1 gm/dL (6.4-8.2)
[2018-12-12 21:13] LABS: TROPONIN-I < 0.012 ng/mL (0.000-0.035)
[2018-12-12 22:35] LABS: COLLECTION METHOD CLEAN CATCH
[2018-12-12 22:42] LABS: MUCOUS Present /lpf; PH 5 (5-8); SQUAMOUS EPITHELIAL None Seen /hpf; URINE APPEARANCE Clear; URINE BACTERIA None Seen /hpf; URINE BILIRUBIN Negative (NEGATIVE); URINE BLOOD Negative (NEGATIVE); URINE COLOR Amber; URINE GLUCOSE Negative (NEGATIVE); URINE KETONE Trace (NEGATIVE); URINE LEUKOCYTE ESTERASE Negative (NEGATIVE); URINE NITRATE Negative (NEGATIVE); URINE PROTEIN(semi-quant) Negative (NEGATIVE); URINE RBC 0-2 /hpf; URINE UROBILINOGEN >=4.0 mg/dL (NEGATIVE)
[2018-12-13] MEDS ORDERED: DOXYCYCLINE HY100 MG PO (00:24)
[2018-12-13 00:44] VITALS: BP 135/59; PULSE 91
== END 2018-12-13 00:45 | disposition home or self-care (01) ==
LOC: COL.ER 20:05
PROVIDERS: Emergency Medicine
DX: R53.83 Other fatigue (principal); R53.81 Other malaise; R41.0 Disorientation, unspecified; I10 Essential (primary) hypertension; F32.9 Major depressive disorder, single episode, unspecified; G20 Parkinson's disease; G40.909 Epilepsy, unspecified, not intractable, without status epilepticus; W19.XXXA Unspecified fall, initial encounter
CPT/HCPCS: J7030

== ENCOUNTER → 2019-01-10 | Outpatient (CLI) | payer MEDICARE, BC ==
[~2019-01-10] MED LIST changes: +ARICEPT 5MG PO; +DOXYCYCLINE HY100 MG PO; +KEPPRA250 MG PO; +MYCOGEN TP; +PAXIL 10MG10 MG PO; +REMERON 15M15 MG/TA1 PO
[2019-01-10 18:11] LABS: INR 1.3 (0.8-3.0); PROTHROMBIN TIME 14.6 SECONDS (9.7-12.8)
[2019-01-10 18:21] LABS: ALBUMIN 2.3 gm/dL (3.5-5.0); BILIRUBIN,TOTAL 0.9 mg/dL (0.0-1.0); CALCIUM 7.9 mg/dL (8.4-10.2); CREATININE, serum 1.17 (0.52-1.25); TOTAL PROTEIN 6.5 gm/dL (6.4-8.2)
[2019-01-10 18:35] LABS: BASO # 0.1 (0.0-0.2); EOS # 0.1 (0.0-0.7); EOS % 1.2 % (0-4.0); GRAN # 6.3 (1.4-6.5); GRAN % 69.8 % (42.2-75.2); HEMATOCRIT 41.9 % (37.0-47.0); HEMOGLOBIN 13.7 g/dl (12.5-16.0); LYMPH # 0.9 (1.2-3.4); LYMPH % 10.4 % (20.0-51.0); MEAN CELL VOLUME 103 fl (80.0-100.0); MEAN CORPUSCULAR HEMOGLOBIN 34 pg (27.0-31.0); MEAN CORPUSCULAR HGB CONC 33 g/dl (33.0-37.0); MEAN PLATELET VOLUME 9.8 fl (7.4-10.4); MONO # 1.5 (0.1-0.6); MONO % 16.4 % (1.7-9.3); PLATELET COUNT 151 K/mm3 (130-400); RED BLOOD COUNT 4.07 M/mm3 (4.10-5.30)
== END ==
LOC: ZCOL.LAB 17:02
PROVIDERS: Internal Medicine Gastroenterology
DX: D89.0 Polyclonal hypergammaglobulinemia (principal); K76.9 Liver disease, unspecified; R11.0 Nausea; R60.9 Edema, unspecified

== ENCOUNTER → 2019-01-12 | Outpatient (CLI) | payer MEDICARE, BC ==
[2019-01-12 19:17] LABS: COLLECTION METHOD CLEAN CATCH
[2019-01-12 19:35] LABS: MUCOUS Present /lpf; PH 6 (5-8); SQUAMOUS EPITHELIAL 0-2 /hpf; URINE APPEARANCE Clear; URINE BACTERIA None Seen /hpf; URINE BILIRUBIN Negative (NEGATIVE); URINE BLOOD Negative (NEGATIVE); URINE COLOR Yellow; URINE GLUCOSE Negative (NEGATIVE); URINE KETONE Negative (NEGATIVE); URINE LEUKOCYTE ESTERASE Negative (NEGATIVE); URINE NITRATE Negative (NEGATIVE); URINE PROTEIN(semi-quant) Negative (NEGATIVE); URINE RBC 0-2 /hpf; URINE UROBILINOGEN Negative (NEGATIVE); URINE WBC 0-2 /hpf
== END ==
LOC: ZCOL.LAB 18:27
PROVIDERS: Family Medicine
DX: N39.0 Urinary tract infection, site not specified (principal)

== ENCOUNTER → 2019-01-19 | Outpatient (CLI) | payer MEDICARE, BC | LOC: COL.RAD 07:47 | DX: K74.60 Unspecified cirrhosis of liver (principal); J90 Pleural effusion, not elsewhere classified; Z90.49 Acquired absence of other specified parts of digestive tract ==

== ENCOUNTER 2019-01-30 06:51 | Day surgery (SDC) | payer MEDICARE, BC ==
[~2019-01-30] VITALS: Ht 152.4 cm; Wt 76.7 kg
[2019-01-30 07:28] VITALS: BP 123/88; PULSE 115; TEMP 96.9
[2019-01-30] MEDS ORDERED: K-TAB20 PO (07:45)
[2019-01-30] MEDS ORDERED: LASIX 20MG TABL20 MG PO (07:45)
[2019-01-30] MEDS ORDERED: FLOVENT DI50 MCG/Act IH (07:47)
[2019-01-30] MEDS ORDERED: GAS-X ULTRA ST180 MG PO (07:48)
[2019-01-30] MEDS ORDERED: DULCOLAX S10 MG/SUPP RC (07:49)
[2019-01-30] MEDS ORDERED: TYLENOL 325MG325 MG PO (07:49)
[2019-01-30] MEDS ORDERED: ARICEPT 5MG PO (08:16)
[2019-01-30] MEDS ORDERED: DEPAKOTE ER 25250 MG PO (08:19)
[2019-01-30] MEDS ORDERED: PRILOSEC 20MG20 MG PO (08:22)
[2019-01-30] MEDS ORDERED: XALATAN EYE DROPS OS (08:24)
[2019-01-30] MEDS ORDERED: KEPPRA250 MG PO (08:26)
[2019-01-30] MEDS ORDERED: ZOFRAN8 MG PO (08:27)
[2019-01-30 08:55] VITALS: BP 114/92; PULSE 96; TEMP 97.3
--- NOTE | 2019-01-30 08:55 | NUR ---
PT IS ALERT. RETURNS FROM PROCEDURE TO BAY 4 BY CART. ASSISTED FROM CART TO CHAIR WITH 2 ASSIST, PIVOT TRANSFER. PT TOLERATES WELL. REQUESTS CHOCOLATE PUDDING AND SPRITE. MONITORS APPLIED. VSS AND AT BASELINE. SON IN ROOM. REPORT OBTAINED FROM ENDO STAFF. CALL LIGHT IN REACH.
[2019-01-30 09:10] VITALS: BP 126/81; PULSE 98
--- NOTE | 2019-01-30 09:10 | NUR ---
PT DENIES PAIN OR NAUSEA. TOLERATES PUDDING AND SPRITE. VSS AND AT BASELINE. SON REMAINS AT SIDE. CALL LIGHT IN REACH.
[2019-01-30 09:25] VITALS: BP 119/76; PULSE 98
--- NOTE | 2019-01-30 09:25 | NUR ---
DR. HARRELL IN ROOM. DC INSTRUCTIONS GIVEN TO PT AND SON. BOTH VOICE UNDERSTANDING. IV TO LEFT AC DC'D WITH CATH TIP INTACT.
[2019-02-01] MEDS ORDERED: MIRALAX PA17 GM/Dose PO (12:15)
== END 2019-01-30 09:40 | disposition home or self-care (01) ==
LOC: SDCO 06:51
DX: K74.60 Unspecified cirrhosis of liver (principal); I85.10 Secondary esophageal varices without bleeding; K44.9 Diaphragmatic hernia without obstruction or gangrene; K29.30 Chronic superficial gastritis without bleeding; I10 Essential (primary) hypertension; F32.9 Major depressive disorder, single episode, unspecified; K21.9 Gastro-esophageal reflux disease without esophagitis; M19.90 Unspecified osteoarthritis, unspecified site; G20 Parkinson's disease; M79.7 Fibromyalgia; Z88.1 Allergy status to other antibiotic agents; Z88.8 Allergy status to other drugs, medicaments and biological substances; Z88.2 Allergy status to sulfonamides; Z88.3 Allergy status to other anti-infective agents; Z88.0 Allergy status to penicillin; Z88.6 Allergy status to analgesic agent; Z90.49 Acquired absence of other specified parts of digestive tract; Z96.651 Presence of right artificial knee joint
CPT/HCPCS: OP; J2704; J7120

== ENCOUNTER → 2019-02-01 | Outpatient (CLI) | payer MEDICARE, BC ==
[~2019-02-01] VITALS: Ht 152.4 cm; Wt 77.3 kg
[~2019-02-01] MED LIST changes: +DEPAKOTE ER 25250 MG PO; +DULCOLAX S10 MG/SUPP RC; +FLOVENT DI50 MCG/Act IH; +GAS-X ULTRA ST180 MG PO; +MIRALAX PA17 GM/Dose PO; +TYLENOL 325MG325 MG PO
[2019-02-01 12:19] VITALS: BP 129/89; PULSE 122
[2019-02-01 13:51] VITALS: BP 118/78; PULSE 100
[2019-02-01 14:06] LABS: PERITONEAL -POLYMORPHONUCLEAR 11.4 % (0-25); PERITONEAL FLUID RBC 0 /mm3 (0-0)
== END ==
LOC: COL.RAD 11:45
PROVIDERS: Internal Medicine Gastroenterology
DX: R18.8 Other ascites (principal); N83.8 Other noninflammatory disorders of ovary, fallopian tube and broad ligament

== ENCOUNTER → 2019-02-09 | Outpatient (CLI) | payer MEDICARE, BC ==
[~2019-02-09] MED LIST changes: +KLOR-CON20 MEQ PO; +LACTULOSE10 GM/153 PO
[2019-02-09 13:52] LABS: CALCIUM 8.1 mg/dL (8.4-10.2); CREATININE, serum 1.09 (0.52-1.25); POTASSIUM 4.6 mmol/L (3.4-5.0)
== END ==
LOC: ZCOL.LAB 13:15
PROVIDERS: Internal Medicine Nephrology
DX: K76.9 Liver disease, unspecified (principal)

== ENCOUNTER → 2019-02-13 | Outpatient (CLI) | payer MEDICARE, BC | LOC: COL.RAD 07:30 | DX: Z01.812 Encounter for preprocedural laboratory examination (principal); K74.60 Unspecified cirrhosis of liver; N83.201 Unspecified ovarian cyst, right side; R93.89 Abnormal findings on diagnostic imaging of other specified body structures | CPT/HCPCS: A9585 ==

== ENCOUNTER → 2019-02-14 | Outpatient (CLI) | payer MEDICARE, BC ==
[~2019-02-14] VITALS: Ht 152.4 cm; Wt 77.4 kg
[2019-02-14 10:11] VITALS: BP 116/77; PULSE 106
--- NOTE | 2019-02-14 11:15 | NUR ---
PT WAS TAKEN DOWN TO LOBBY IN WHEELCHAIR AND ASSISTED INTO VAN. HER SON WAS GIVEN THE DC PAPER WORK
[2019-02-14 11:17] VITALS: BP 105/77; PULSE 103
[2019-02-14 11:51] LABS: PERITONEAL -POLYMORPHONUCLEAR 18.2 % (0-25); PERITONEAL FLUID RBC 0 /mm3 (0-0)
== END ==
LOC: COL.RAD 09:20
PROVIDERS: Internal Medicine Gastroenterology
DX: K74.60 Unspecified cirrhosis of liver (principal); I85.00 Esophageal varices without bleeding
CPT/HCPCS: 19804